=== PATIENT | female | born 2000 ===

== ENCOUNTER 2024-04-01 17:31 | Inpatient (IN) ==
[2024-04-01] MEDS: Meperidine 50 mg/ml SYRINGE 1 ml IM ONE (21:55)
[2024-04-01] MEDS: Promethazine INJ(RESTRICTED) 25 MG/ML 1 ml VIAL IM PRN (21:56)
[2024-04-02 00:05] LABS: Urine Benzodiazepine Screen None Detected (None Detect); Urine Cannabinoids Screen None Detected (None Detect); Urine Opiates Screen None Detected (None Detect)
[2024-04-02 05:58] LABS: ABS Lymphocytes 3.8 10^3/uL (1.0-4.8); ABS Monocytes 0.8 10^3/uL (0.0-0.9); ABS Neutrophils 9.4 10^3/uL (1.5-7.6); ABS Nucleated RBC 0.01 10^3/ul; Eosinophil % 0.2 %; Hematocrit 40.8 % (35-45); Hemoglobin 13.5 g/dL (11.5-14.3); Lymphocyte % 26.8 %; Mean Corpuscular Hemoglobin 31.7 pg (27-33); Mean Corpuscular Hgb Conc 33.2 g/dL (31-36); Mean Corpuscular Volume 95.6 fL (80-97); Mean Platelet Volume 8.7 fL (7.5-11.2); Nucleated Red Blood Cells % 0.1 %/100WBC (0.0-0.8); Platelet Count 184 10^3/uL (150-450); Red Blood Count 4.27 10^6/uL (3.63-4.92); Red Cell Distribution Width 14.8 % (12-17)
[2024-04-02] MEDS: Oxytocin 10 UNITS/ML 1 ML VIAL IM ONE (06:05)
[2024-04-02] MEDS: Lidocaine 1% VIAL 10 MG/ML 30 ML VIAL INJ PRN (06:08)
[2024-04-02] MEDS: Lidocaine 2% JELLY 6 ML Topical TOPICAL ONE (06:10)
[2024-04-02] MEDS ORDERED: Glycerin ADULT 2.4 gm SUPP PR PRN (06:28)
[2024-04-02] MEDS: Buffered Lidocaine 1% SYRIN 1 ml INTRADERM ONE ×2 (06:39)
[2024-04-02] MEDS: Witch Hazel PAD JAR TOPICAL PRN (06:43)
[2024-04-02] MEDS: Dibucaine 1% OINT 28.35 GM TUBE PR PRN (06:43)
[2024-04-02] MEDS: Lactated Ringers 1000 ml BAG 1,000 ML IV SCH (06:49)
[2024-04-02] MEDS: Lactated Ringers 1000 ml BAG 1,000 ML IV ONE (06:50)
[2024-04-02] MEDS ORDERED: Lactated Ringers 1000 ml BAG 1,000 ML IV SCH (07:00)
[2024-04-03 10:33] LABS: ABS Eosinophils 0.1 10^3/uL (0.0-0.5); ABS Lymphocytes 2.4 10^3/uL (1.0-4.8); ABS Monocytes 0.4 10^3/uL (0.0-0.9); ABS Neutrophils 7.5 10^3/uL (1.5-7.6); ABS Nucleated RBC 0.01 10^3/ul; Eosinophil % 0.7 %; Hematocrit 34.9 % (35-45); Hemoglobin 11.5 g/dL (11.5-14.3); Lymphocyte % 23.2 %; Mean Corpuscular Hemoglobin 31.8 pg (27-33); Mean Corpuscular Volume 96.3 fL (80-97); Nucleated Red Blood Cells % 0.1 %/100WBC (0.0-0.8); Platelet Count 164 10^3/uL (150-450); Red Blood Count 3.62 10^6/uL (3.63-4.92); Red Cell Distribution Width 14.9 % (12-17); White Blood Count 10.5 10^3/uL (3.8-11.8)
[2024-04-04 08:13] VITALS: BP 123/73
[2024-04-04] MEDS: Polyethylene Glycol 3350 17 GM PACKET PO PRN (11:05)
[2024-04-04] MEDS: Measles, Mumps,Rubella VACC 0.5 ML/VIAL SUBCUT ONE (11:36)
== END 2024-04-04 13:30 | disposition home or self-care (01) | DRG 807 ==
LOC: MCHOBOUT 17:31 → MCHOB 04-02 05:30
PROVIDERS: ADMIT Advanced Practice Midwife; ATTEND Advanced Practice Midwife